=== PATIENT | male | born 1970 | race Caucasian/White ===

== ENCOUNTER 2017-02-24 09:37 | Emergency (ER) | payer OTHER ==
[~2017-02-24] VITALS: Ht 188 cm; Wt 107.4 kg
[~2017-02-24 09:37] MED LIST: ALBU8.5H2 INHALATION; LOPE2CAP PO; LORA2TAB PO; ONDA4TAB12 PO
[2017-02-24 09:40] VITALS: BP 139/91; PULSE 146; RESP 16; O2SAT 95
--- NOTE | 2017-02-24 09:58 | ED.REPORT ---
HPI-General Illness Date of Service Feb 24, 2017 ED Provider: Kenya Obando MD 46 y/o male with a hx of alcohol abuse presents to the ED for medical clearance for crisis respite. He has been binge drinking for a couple of days after being sober for about 4 months. Pt reports he last drank earlier this morning and is currently feeling like he needs another drink. The pt complains of associated weakness, dizziness, diarrhea, nausea, vomiting, and decreased appetite. He also mentions a cough he has had for the last 3 months. He denies fever, myalgia , abdominal pain, chest pain, or shortness of breath. Pt also denies depression and suicidal ideation. Nursing Notes Stated Complaint: DETOX Chief Complaint: Substance Abuse Nursing Notes Reviewed: Yes Allergies: Coded Allergies: penciclovir (Verified Allergy, Intermediate, Hives, 02/17/15) Penicillins (Verified Allergy, Unknown, hives, 03/17/15) Scheduled Albuterol HFA (Proair HFA) 8.5 Gm Hfa.aer.ad 2 PUFFS INHALATION Q4H Azithromycin (Zithromax) 250 Mg Tablet 250 MG PO DAILY Loperamide (Loperamide) 2 Mg Capsule 2 MG PO Q4H 2 tab first stool, 1 after subsequent up to 8 in 24 hours Lorazepam (Lorazepam) 2 Mg Tablet 2 MG PO DIRECTED 4 day taper per protocol 06/02/01/29 Ondansetron ODT (Ondansetron ODT) 4 Mg Tab.rapdis 4 MG PO Q12H Scheduled PRN Ondansetron ODT (Ondansetron ODT) 8 Mg Tab.rapdis 8 MG PO Q8H PRN PRN For Nausea /Vomiting General Time Seen by MD: 09:56 Chief Complaint Other (Medical clearance for crisis respite) Hx Obtained From: Patient Arrived By: Walk-in Sudden in Onset?: Yes Onset Occurred: 2 days ago Symptom Duration: Since onset Severity: Current: No pain currently Severity: Maximum: No pain Recent Healthcare: No recent doctor visit Similar Sx Previous: No Past Medical History Past Medical History Alcohol dependence Alcohol detox requests Alcohol withdrawal seizures Prostate cancer, in remission on quarterly checks Past Surgical History none reported Smoking History Current Every Day Smoker Social History Alcohol Use: >5 per day Drug Use: Denies drug use Other Social History: Frequent ED visitor Ambulatory Status Independent Review of Systems Decreased appetite Full Review of Systems Constitutional: Reports: Weakness - generalized, Denies: Fever Respiratory: Reports: Non-productive cough, Denies: Shortness of breath Cardiovascular: Denies: Chest pain GI: Reports: Diarrhea, Nausea, Vomiting, Denies: Abdominal pain Musculoskeletal: Denies: Myalgia Neurologic: Reports: Dizziness Psychiatric: Denies: Depression, Suicidal ideation Complete sys rev & neg: except as marked. Physical Exam Vital Signs Vital Signs Date Time Temp Pulse Resp B/P Pulse Ox O2 Delivery O2 Flow Rate FiO2 02/24/17 12:03 107 20 153/93 99 Room Air 02/24/17 09:40 37.1 146 16 139/91 95 Initial VS: Reviewed, Vital signs abnormal Head / Eyes: Atraumatic, Normocephalic, PERRL ENT: Mucous membranes moist, Conjunctiva normal, No scleral icterus Neck: Supple, Non-tender, Full range of motion Abdomen / GI: Soft, Non-tender, No guarding, No rebound, No distention Extremities: Vascular intact, Neuro intact, No swelling, No tenderness Neurologic: Alert, Oriented, Nonfocal Psychiatric: Mood/affect normal, Behavior normal, Normal thought content Respiratory / Chest: Atraumatic, No rales, No wheezing, No retractions Scattered Rhonchi Cardiovascular: Regular rhythm, Heart sounds NL, No murmurs Heart Rate / Rhythm: Positive: Tachycardia Interpretation & Diagnostics Lab Results Interpretation Result Diagram: 02/24/17 1018 02/24/17 1018 Test 02/24/17 10:18 02/24/17 10:34 White Blood Count 9.4th/mm3 (3.8-10.1) Red Blood Count 5.12mil/mm3 (4.40-5.80) Hemoglobin 15.4g/dL (13.8-17.2) Hematocrit 45.0% (41.0-50.0) Mean Corpuscular Volume 87.9fL (81-100) Mean Corpuscular Hemoglobin 30.1pg (27.0-35.0) Mean Corpuscular Hemoglobin Concent 34.2% (32.0-37.0) Red Cell Distribution Width 12.9% (12.3-15.4) Platelet Count 218bil/L (150-400) Neutrophils (%) (Auto) 56.7% (40-74) Lymphocytes (%) (Auto) 34.2% (14-46) Monocytes (%) (Auto) 8.2% (4-12) Eosinophils (%) (Auto) 0.2% (0-5) Basophils (%) (Auto) 0.4% (0-3) Hold Blue Top Tube Received (Received) Sodium Level 136mEq/L (134-144) Potassium Level 3.8mEq/L (3.5-5.2) Chloride Level 95mEq/L (97-108) Carbon Dioxide Level 18mmol/L (18-29) Blood Urea Nitrogen 12mg/dL (6-24) Creatinine 1.05mg/dL (0.76-1.27) Estimat Glomerular Filtration Rate 80mL/min (>59) Glucose Level 156mg/dL (60-99) Calcium Level 9.4mg/dL (8.5-10.1) Total Bilirubin 0.2mg/dL (0.0-1.2) Aspartate Amino Transf (AST/SGOT) 39U/L (0-50) Alanine Aminotransferase (ALT/SGPT) 21U/L (0-44) Alkaline Phosphatase 78U/L (25-150) Total Protein 7.6g/dL (6.4-8.4) Albumin 4.6g/dL (3.4-5.0) Hold Robles Top Tube Received (Received) X-Ray Chest Interpretation Chest Xray Interpretation: IMPRESSION: Mild bibasilar atelectasis versus pneumonia. Dictated by: Lubna Tang M.D. on 02/24/2017 at 12:07 Approved by: Lubna Tang M.D. on 02/24/2017 at 12:07 View: Portable, AP & lat Interpretation / Wet Read by: Interpret - Radiologist Re-Eval/Medical Decision Med Decision/Clinical Course The patient presents for medical clearance for detox. He is found to be significantly tachycardiac and was treated with IV hydration which improved his tachycardia. He also had 3 months of cough and has a questionable pneumonia on chest x-ray. Given the duration of his cough is not a course of antibiotics is warranted. The patient was medically cleared and sent to crisis respite with an Ativan taper, ondansetron, and azithromycin. Time of Eval: 12:38 Re-Evaluation/Progress Note: Rechecked pt. Discussed lab and imaging results and diagnosis. Informed the pt of the plan to discharge. Pt understands and agrees with plan. F/U instructions and RTER warning given. All questions addressed. Counseled Regarding: Diagnosis, Lab results, Need for follow-up, When/why to return to ED Discharge & Departure Primary Impression: Alcohol dependence with withdrawal Complication of substance-induced condition: uncomplicated Qualified Code: F10.230 - Alcohol dependence with withdrawal, uncomplicated Additional Impression: Pneumonia Pneumonia type: due to unspecified organism Laterality: unspecified laterality Lung location: unspecified part of lung Qualified Code: J18.9 - Pneumonia, unspecified organism Disposition: Home Discharge Condition All VS Reviewed: Yes Condition: Stable Patient Instructions: Alcohol Intoxication (GEN) Additional Instructions: Please go straight to crisis respite. Take your next dose of antibiotics tomorrow. It should help with your cough. Follow up with your Primary Care Provider for further evaluation as needed. Return to the Emergency Department in case of difficulty breathing or any new or worsening symptoms. Referrals: [facility] Scribe Attestation Portions of this note were transcribed by Luis A Wiseman. I, , personally performed the history, physical exam and medical decision-making;I reviewed and confirmed the accuracy of the information in the transcribed note. Signed by Sonu Le. 02/24/17 13:15. copies to: [facility] Kenya Obando MD Feb 24, 2017 09:58 Luis A Pandey Feb 24, 2017 10:07 Kimberli Wiseman Feb 24, 2017 13:14
[2017-02-24] MEDS ORDERED: 0.9% Sodium Chloride 1,000 ML IV ONE (10:00)
[2017-02-24 10:21] LABS: BASOPHILS % (AUTO) 0.4 % (0-3); EOSINOPHILS % (AUTO) 0.2 % (0-5); MONOCYTES % (AUTO) 8.2 % (4-12); Mean Corpuscular Hemoglobin 30.1 pg (27.0-35.0); Mean Corpuscular Volume 87.9 fL (81-100); NEUTROPHILS % (AUTO) 56.7 % (40-74); Platelet Count 218 bil/L (150-400)
[2017-02-24] MEDS ORDERED: Ondansetron 2 mg/mL 2 mL Inj ONE ×2 (10:24→12:47)
[2017-02-24 12:03] VITALS: BP 153/93; PULSE 107; RESP 20; O2SAT 99
--- NOTE | 2017-02-24 12:09 | DRSVH ---
PROCEDURE: X-RAY CHEST, TWO VIEWS ([id number]) INDICATIONS: cough TECHNIQUE: 2 views of the chest were acquired. COMPARISON: [facility], , CHEST 2VW, 12/12/2009, 22:11. FINDINGS: Surgical changes and devices: None. Lungs and pleura: No pleural effusions or pneumothorax. Mild patchy bibasilar airspace opacity. Mediastinum: Mediastinal contours are normal. Heart size is normal. Bones and chest wall: No suspicious bony abnormalities. Soft tissues appear unremarkable. IMPRESSION: Mild bibasilar atelectasis versus pneumonia. Dictated by: Lubna Tang M.D. on 02/24/2017 at 12:07 Approved by: Lubna Tang M.D. on 02/24/2017 at 12:07
[2017-02-24] MEDS ORDERED: ONDA8TAB10 PO (12:49)
[2017-02-24] MEDS ORDERED: ZIT250 PO (12:49)
[2017-02-24] MEDS ORDERED: LORazepam 2 mg Tablet PO ONE (13:05)
== END 2017-02-24 13:20 | disposition home or self-care (01) ==
LOC: SED 09:37
DX: F10.230 Alcohol dependence with withdrawal, uncomplicated (principal); J18.9 Pneumonia, unspecified organism; F17.200 Nicotine dependence, unspecified, uncomplicated; Z88.0 Allergy status to penicillin; Z88.8 Allergy status to other drugs, medicaments and biological substances
CPT/HCPCS: 36415; 71020; 80053; 82075; 85025; 96361; 96374; 99285; J2405; J7030

== ENCOUNTER 2017-04-07 00:15 | Emergency (ER) | payer OTHER ==
[~2017-04-07] VITALS: Ht 185.4 cm; Wt 104.6 kg
[~2017-04-07 00:15] MED LIST changes: +ONDA8TAB10 PO; +ZIT250 PO
[2017-04-07 00:23] VITALS: BP 135/91; PULSE 130; RESP 16; O2SAT 96
--- NOTE | 2017-04-07 00:34 | ED.REPORT ---
HPI-General Illness Date of Service Apr 07, 2017 ED Provider: Semaj Villagran DO A 46 year old male with a history of alcohol dependence and alcohol withdrawal with seizures presents to the ED requesting medical clearance for Crisis. The pt has a bed being held at [facility] until 09:00 in the morning. The pt has been on a hercules for nine days, drinking seven to eight drinks per day. His last drink was four hours ago. The pt is tremulous and has been vomiting today. Nursing Notes Stated Complaint: ALCOHOL DETOX Chief Complaint: Substance Abuse Nursing Notes Reviewed: Yes Allergies: Coded Allergies: penciclovir (Verified Allergy, Intermediate, Hives, 04/07/17) Penicillins (Verified Allergy, Unknown, hives, 04/07/17) Scheduled Albuterol HFA (Proair HFA) 8.5 Gm Hfa.aer.ad 2 PUFFS INHALATION Q4H Azithromycin (Zithromax) 250 Mg Tablet 250 MG PO DAILY Loperamide (Loperamide) 2 Mg Capsule 2 MG PO Q4H 2 tab first stool, 1 after subsequent up to 8 in 24 hours Lorazepam (Lorazepam) 2 Mg Tablet 2 MG PO DIRECTED 4 day taper per protocol 06/02/4/2 Ondansetron ODT (Ondansetron ODT) 4 Mg Tab.rapdis 4 MG PO Q12H Scheduled PRN Ondansetron ODT (Ondansetron ODT) 8 Mg Tab.rapdis 8 MG PO Q8H PRN PRN For Nausea /Vomiting General Time Seen by MD: 00:34 Chief Complaint Medical clearance Hx Obtained From: Patient Arrived By: Walk-in Sudden in Onset?: No Recent Healthcare: Recent doctor visit Similar Sx Previous: Yes Past Medical History Past Medical History Alcohol dependence Alcohol detox requests Alcohol withdrawal seizures Prostate cancer, in remission on quarterly checks Past Surgical History none reported Smoking History Current Every Day Smoker Social History Alcohol Use: >5 per day Drug Use: Denies drug use Other Social History: Frequent ED visitor Ambulatory Status Independent Review of Systems tremulous Full Review of Systems Respiratory: Denies: Non-productive cough, Shortness of breath Cardiovascular: Reports: Chest pain GI: Reports: Nausea, Vomiting Musculoskeletal: Denies: Back pain, Neck pain Skin: Denies Rash Complete sys rev & neg: except as marked. Physical Exam Vital Signs Vital Signs Date Time Temp Pulse Resp B/P Pulse Ox O2 Delivery O2 Flow Rate FiO2 04/07/17 00:23 36.6 130 16 135/91 96 Room Air Initial VS: Reviewed General/Constitutional: Awake, Alert tremulous Head / Eyes: Atraumatic, Normocephalic, PERRL, EOMI ENT: Atraumatic, Airway patent, Mucous membranes moist Neck: Atraumatic, Supple, Full range of motion Respiratory / Chest: Atraumatic, Breath sounds NL, Breath sounds = bilat, No respiratory distress Cardiovascular: Regular rhythm, Heart sounds NL Heart Rate / Rhythm: Positive: Tachycardia Abdomen: Atraumatic, Soft, Non-tender Back: Atraumatic, Full range of motion Upper Extremities Upper Extremity / MS: Atraumatic, Full range of motion Lower Extremity / Pelvis / MS: Atraumatic, Full range of motion Skin: Atraumatic, Color NL, No rash, Warm, Dry Neurologic: Oriented X3, Speech NL, No motor deficits, No sensory deficits Psychiatric: Affect NL, Mood NL tactile hallucinations Interpretation & Diagnostics Lab Results Interpretation Result Diagram: 04/07/17 0115 Test 04/07/17 01:15 White Blood Count 7.6th/mm3 (3.8-10.1) Red Blood Count 4.90mil/mm3 (4.40-5.80) Hemoglobin 15.1g/dL (13.8-17.2) Hematocrit 44.6% (41.0-50.0) Mean Corpuscular Volume 91.0fL (81-100) Mean Corpuscular Hemoglobin 30.8pg (27.0-35.0) Mean Corpuscular Hemoglobin Concent 33.9% (32.0-37.0) Red Cell Distribution Width 13.8% (12.3-15.4) Platelet Count 195bil/L (150-400) Neutrophils (%) (Auto) 37.8% (40-74) Lymphocytes (%) (Auto) 49.0% (14-46) Monocytes (%) (Auto) 11.0% (4-12) Eosinophils (%) (Auto) 1.3% (0-5) Basophils (%) (Auto) 0.5% (0-3) Hold Robles Top Tube Received (Received) Pulse Oximetry Interpretation Pulse Oximetry Interpretation: 96% on room air Pulse Oximetry: Pulse Ox normal ECG Interpretation ECG Interpretation: sinus tachycardia with a rate of 110 Time: 00:52 Interpreted by: ED physician Re-Eval/Medical Decision Source of Hx: Old records Time of Eval: 01:25 Patient Status: Condition improved Re-Evaluation/Progress Note: Pt rechecked, who is resting comfortably. His heart rate has improved and he is no longer vomiting. Time of Eval: 02:10 Patient Status: Condition improved Re-Evaluation/Progress Note: Pt rechecked, who is feeling much better. He is no longer tremulous or ancious. Heart rate is 78 and respiratory rate is 16. Abdomen is soft and nontender. The pt feels prepared to be discharged to sobering services. The diagnosis and plan for discharge is discussed. The pt understands and agrees with the plan. All questions are addressed at this time. Counseled Regarding: Diagnosis, Lab results, Need for follow-up, When/why to return to ED Discharge & Departure Primary Impression: Alcohol dependence with withdrawal Complication of substance-induced condition: with perceptual disturbance Qualified Code: F10.232 - Alcohol dependence with withdrawal with perceptual disturbance Disposition: Home Discharge Condition All VS Reviewed: Yes Condition: Stable Patient Instructions: Alcohol Withdrawal (DC) Additional Instructions: I commend you for choosing sobriety. Proceed to sobering services. Complete the lorazepam taper. Never combine alcohol with the lorazepam. Return to the emergency department for any problems or any worrisome symptoms. Set up a follow-up with your primary care physician after detox. Do not drive or operate machinery while under the influence of lorazepam. Do not drive tonight. Referrals: [facility] Scribe Attestation Portions of this note were transcribed by Jessica Fernandes. I, Dr. Villagran personally performed the history, physical exam and medical decision-making; I reviewed and confirmed the accuracy of the information in the transcribed note. Signed by: Sonu Deutsch, 04/07/17 and 0216. copies to: [facility] ; [facility] Semaj Villagran DO Apr 07, 2017 00:34 JESSICA FERNANDES Apr 07, 2017 00:46 JESSICA FERNANDES Apr 07, 2017 00:46
[2017-04-07] MEDS ORDERED: _LORazepam 2 MG Tablet PO SCH (00:35)
[2017-04-07] MEDS ORDERED: 0.9% Sodium Chloride 1,000 ML IV SCH (00:40)
[2017-04-07] MEDS ORDERED: Thiamine 100 mg/mL 2 mL Inj IM ONE (00:40)
[2017-04-07] MEDS ORDERED: FOLIC ACID 5 MG/ML IM ONE (00:40)
[2017-04-07 01:39] LABS: BASOPHILS % (AUTO) 0.5 % (0-3); EOSINOPHILS % (AUTO) 1.3 % (0-5); Mean Corpuscular Hemoglobin 30.8 pg (27.0-35.0); NEUTROPHILS % (AUTO) 37.8 % (40-74); Platelet Count 195 bil/L (150-400)
[2017-04-07 02:42] VITALS: BP 118/73; PULSE 89; RESP 20; O2SAT 93
== END 2017-04-07 02:35 | disposition home or self-care (01) ==
LOC: SED 00:15
DX: F10.232 Alcohol dependence with withdrawal with perceptual disturbance (principal); F17.200 Nicotine dependence, unspecified, uncomplicated; Z88.0 Allergy status to penicillin; Z88.8 Allergy status to other drugs, medicaments and biological substances
CPT/HCPCS: 36415; 80053; 85025; 93005; 96361; 96372; 96374; 99285; G0480; J3360; J7030

== ENCOUNTER 2017-05-18 20:14 | Emergency (ER) | payer OTHER ==
[~2017-05-18] VITALS: Ht 185.4 cm; Wt 103.3 kg
[2017-05-18 20:24] VITALS: BP 129/71; PULSE 116; RESP 22; O2SAT 96
--- NOTE | 2017-05-18 21:43 | ED.REPORT ---
HPI-Overdose/Alcohol Toxicity Date of Service May 18, 2017 ED Provider: Steven Oviedo MD Pt is a 46 year old male with a history of seizure-complicated alcohol withdrawals, alcohol detox, and alcohol dependence who presents to the ED wanting medical [facility] for [facility]. He reports that his last drink was at 18:00 today. The pt recently went to crisis on 04/07/17, and he reports that he stayed clean for 30 days. He denies any other health issues. Pt reports that he has a recent history of pneumonia, but he denies feeling similar symptoms. Nursing Notes Stated Complaint: ALCOHOL DETOX Chief Complaint: Substance Abuse Nursing Notes Reviewed: Yes Allergies: Coded Allergies: penciclovir (Verified Allergy, Intermediate, Hives, 05/18/17) Penicillins (Verified Allergy, Unknown, hives, 05/18/17) Scheduled Albuterol HFA (Proair HFA) 8.5 Gm Hfa.aer.ad 2 PUFFS INHALATION Q4H Azithromycin (Zithromax) 250 Mg Tablet 250 MG PO DAILY Loperamide (Loperamide) 2 Mg Capsule 2 MG PO Q4H 2 tab first stool, 1 after subsequent up to 8 in 24 hours Lorazepam (Lorazepam) 2 Mg Tablet 2 MG PO DIRECTED 4 day taper per protocol 06/02// Ondansetron ODT (Ondansetron ODT) 4 Mg Tab.rapdis 4 MG PO Q12H Scheduled PRN Ondansetron ODT (Ondansetron ODT) 8 Mg Tab.rapdis 8 MG PO Q8H PRN PRN For Nausea /Vomiting General Time Seen by Provider: 09:24 Chief Complaint Other (Detox) Hx Obtained From: Patient Arrived By: Walk-in Onset Occurred: Just prior to arrival Symptom Duration: Since onset Severity: Current: No pain currently Severity: Maximum: No pain Recent Healthcare: Recent doctor visit Similar Sx Previous: No Past Medical History Past Medical History Alcohol dependence Alcohol detox requests Alcohol withdrawal seizures Prostate cancer, in remission on quarterly checks Pneumonia Past Surgical History none reported Smoking History Current Every Day Smoker Social History Alcohol Use: >5 per day Drug Use: Denies drug use Other Social History: Frequent ED visitor Ambulatory Status Independent Review of Systems + Asymptomatic Complete sys rev & neg: except as marked. Physical Exam Initial Vital Signs Vital Signs (First) Date Time Temp Pulse Resp B/P Pulse Ox O2 Delivery O2 Flow Rate FiO2 05/18/17 20:24 37.2 116 22 129/71 96 Room Air Initial VS: Reviewed, Vital signs abnormal Head / Eyes: Atraumatic, Normocephalic Neck: Supple, Full range of motion Extremities: Vascular intact, Neuro intact Skin: Warm, Dry, No cyanosis General/Constitutional: Awake, Alert, Cooperative Smells of alcohol Respiratory / Chest: Atraumatic, Breath sounds NL, Breath sounds = bilat Cardiovascular: Heart rate NL, Regular rhythm, Heart sounds NL Abdomen: Atraumatic, Soft, Non-tender Liver was not palpable. Neurologic: Oriented X3, Speech NL, No motor deficits, No sensory deficits Psychiatric: Affect NL Interpretation & Diagnostics Lab Results Interpretation Result Diagram: 05/18/17219905/18/172199 Test 05/18/17 22:00 White Blood Count 5.1th/mm3 (3.8-10.1) Red Blood Count 4.68mil/mm3 (4.40-5.80) Hemoglobin 14.7g/dL (13.8-17.2) Hematocrit 42.2% (41.0-50.0) Mean Corpuscular Volume 90.2fL (81-100) Mean Corpuscular Hemoglobin 31.4pg (27.0-35.0) Mean Corpuscular Hemoglobin Concent 34.8% (32.0-37.0) Red Cell Distribution Width 13.3% (12.3-15.4) Platelet Count 154bil/L (150-400) Neutrophils (%) (Auto) 31.4% (40-74) Lymphocytes (%) (Auto) 49.8% (14-46) Monocytes (%) (Auto) 17.0% (4-12) Eosinophils (%) (Auto) 1.0% (0-5) Basophils (%) (Auto) 0.6% (0-3) Sodium Level 139mEq/L (134-144) Potassium Level 4.3mEq/L (3.5-5.2) Chloride Level 98mEq/L (97-108) Carbon Dioxide Level 23mmol/L (18-29) Blood Urea Nitrogen 6mg/dL (6-24) Creatinine 0.95mg/dL (0.76-1.27) Estimat Glomerular Filtration Rate 90mL/min (>59) Glucose Level 91mg/dL (60-99) Calcium Level 9.4mg/dL (8.5-10.1) Magnesium Level 2.1mg/dL (1.6-2.6) Total Bilirubin 0.2mg/dL (0.0-1.2) Aspartate Amino Transf (AST/SGOT) 71U/L (0-50) Alanine Aminotransferase (ALT/SGPT) 63U/L (0-44) Alkaline Phosphatase 97U/L (25-150) Total Protein 7.4g/dL (6.4-8.4) Albumin 4.1g/dL (3.4-5.0) Thyroid Stimulating Hormone (TSH) 1.640uIU/mL (0.450-4.500) Hold Robles Top Tube Received (Received) Lab Results Interpretation: Mild transaminitis secondary to alcohol Re-Eval/Medical Decision Med Decision/Clinical Course 46-year-old male who presents desiring detox. He [facility] bed [facility], but needs medical clearance and a lorazepam taper. He is medically clear. He will be transferred there by taxi. He was given lorazepam taper prepack. Source of Hx: Old records Re-Evaluation/Progress #1: Time of Eval: 23:01 Re-Evaluation/Progress Note: Pt rechecked. Pt is sleeping soundly. 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 Re-Evaluation/Progress #2: Time of Eval: 23:10 Re-Evaluation/Progress Note: Pt rechecked. Informed pt of plan for discharge. Pt understands and agrees with plan for discharge. F/U instructions and RTER warnings given. All questions addressed. Consultation : Call Returned at: 23:08 Studio Manager: Agrees with eval, Agrees with plan Note: Consult with [facility]. Discussed pt's case. They will send a taxi for him at 23:30. Counseled Regarding: Diagnosis, Lab results, Need for follow-up, When/why to return to ED Discharge & Departure Impression: Primary Impression: Alcohol dependence with withdrawal Complication of substance-induced condition: uncomplicated Qualified Code: F10.230 - Alcohol dependence with withdrawal, uncomplicated )( Condition at Discharge: Clear for alcohol rehab Disposition: Home Discharge Condition All VS Reviewed: Yes Condition: Stable Patient Instructions: Alcohol Withdrawal (ED) Additional Instructions: You are medically stable for alcohol withdrawal treatment in an outpatient setting. Go directly to [facility]. I have included an Ativan ( lorazepam) taper to help prevent any medical complications of withdrawal. Referrals: [facility] Scribe Attestation Portions of this note were transcribed by Leena Quezada. I, Dr. Oviedo personally performed the history, physical exam and medical decision-making; I reviewed and confirmed the accuracy of the information in the transcribed note. Signed by: Sonu Jones, 05/18/17 and 23:50. copies to: [facility] Steven Oviedo MD May 18, 2017 21:43 Leena Rey May 18, 2017 22:27
[2017-05-18] MEDS ORDERED: _LORazepam 2 MG Tablet PO SCH (21:50)
[2017-05-18 22:10] LABS: BASOPHILS % (AUTO) 0.6 % (0-3); Mean Corpuscular Hemoglobin 31.4 pg (27.0-35.0); Mean Corpuscular Volume 90.2 fL (81-100); NEUTROPHILS % (AUTO) 31.4 % (40-74); Platelet Count 154 bil/L (150-400)
[2017-05-18 22:46] LABS: Magnesium 2.1 mg/dL (1.6-2.6)
[2017-05-19 00:05] VITALS: BP 135/84; PULSE 117; RESP 16; O2SAT 97
== END 2017-05-19 00:05 | disposition home or self-care (01) ==
LOC: SED 20:14
DX: F10.230 Alcohol dependence with withdrawal, uncomplicated (principal); Z87.01 Personal history of pneumonia (recurrent); Z85.46 Personal history of malignant neoplasm of prostate; Z88.0 Allergy status to penicillin; Z88.8 Allergy status to other drugs, medicaments and biological substances

== ENCOUNTER 2017-06-19 21:11 | Emergency (ER) | payer OTHER ==
[~2017-06-19] VITALS: Ht 188 cm; Wt 100.5 kg
[2017-06-19 21:15] VITALS: BP 137/93; PULSE 118; RESP 18; O2SAT 96
--- NOTE | 2017-06-19 21:42 | ED.REPORT ---
HPI-General Illness Date of Service Jun 19, 2017 ED Provider: Dr. Villagran Pt is a 46 year old male who presents to the ED desiring detox. He reports that [facility], he is requesting clearance. He reports that he is nauseated and vomiting for the past day, and requests nausea medication and fluids. Pt states that he has no complication in the past with detox. He has no other complaints . Nursing Notes Stated Complaint: DETOX Chief Complaint: Substance Abuse Nursing Notes Reviewed: Yes Allergies: Coded Allergies: penciclovir (Verified Allergy, Intermediate, Hives, 05/18/17) Penicillins (Verified Allergy, Unknown, hives, 05/18/17) Scheduled Albuterol HFA (Proair HFA) 8.5 Gm Hfa.aer.ad 2 PUFFS INHALATION Q4H Azithromycin (Zithromax) 250 Mg Tablet 250 MG PO DAILY Loperamide (Loperamide) 2 Mg Capsule 2 MG PO Q4H 2 tab first stool, 1 after subsequent up to 8 in 24 hours Lorazepam (Lorazepam) 2 Mg Tablet 2 MG PO DIRECTED 4 day taper per protocol 4/4/2 Ondansetron ODT (Ondansetron ODT) 4 Mg Tab.rapdis 4 MG PO Q12H Scheduled PRN Ondansetron ODT (Ondansetron ODT) 8 Mg Tab.rapdis 8 MG PO Q8H PRN PRN For Nausea /Vomiting General Time Seen by MD: 21:42 Chief Complaint Other (Detox) Hx Obtained From: Patient Arrived By: Walk-in Sudden in Onset?: No Symptom Duration: Since onset Severity: Current: No pain currently Severity: Maximum: No pain Similar Sx Previous: Yes Past Medical History Past Medical History Alcohol dependence Alcohol detox requests Alcohol withdrawal seizures Prostate cancer, in remission on quarterly checks Pneumonia Past Surgical History none reported Smoking History Current Every Day Smoker Social History Alcohol Use: >5 per day Drug Use: Denies drug use Other Social History: Frequent ED visitor Ambulatory Status Independent Review of Systems Full Review of Systems Constitutional: Denies: Chills, Fever, Malaise, Weakness - generalized Respiratory: Denies: Non-productive cough, Shortness of breath, Wheezing Cardiovascular: Denies: Chest pain, Syncope GI: Reports: Nausea, Vomiting, Denies: Abdominal pain, Constipation, Diarrhea Male: Denies Dysuria, Denies Flank pain Musculoskeletal: Denies: Extremity pain Skin: Denies Diaphoresis Neurologic: Denies: Change LOC, Dizziness, Headache, Syncope, Weakness Complete sys rev & neg: except as marked. Physical Exam Vital Signs Vital Signs Date Time Temp Pulse Resp B/P Pulse Ox O2 Delivery O2 Flow Rate FiO2 06/20/17 00:17 89 16 142/83 94 Room Air 06/19/17 21:15 36.9 118 18 137/93 96 Room Air Initial VS: Reviewed Head / Eyes: Atraumatic, Normocephalic, PERRL ENT: Mucous membranes moist, Conjunctiva normal, No scleral icterus Neck: Supple, Non-tender, Full range of motion Respiratory: Breath sounds normal, Clear to auscultation, No respiratory distress Cardiovascular: Regular rate & rhythm, Heart sounds normal, Intact distal pulses Abdomen / GI: Soft, Non-tender, No guarding, No rebound, No distention Skin: Warm, Dry, No cyanosis Neurologic: Alert, Oriented, Nonfocal General/Constitutional: Awake, Alert Smells of alcohol Slightly slurred speach Interpretation & Diagnostics Lab Results Interpretation Result Diagram: 06/19/17221906/19/172219 Test 06/19/17 21:53 06/19/17 22:20 Hold Urine Received (Received) White Blood Count 6.1th/mm3 (3.8-10.1) Red Blood Count 4.76mil/mm3 (4.40-5.80) Hemoglobin 14.8g/dL (13.8-17.2) Hematocrit 42.9% (41.0-50.0) Mean Corpuscular Volume 90.1fL (81-100) Mean Corpuscular Hemoglobin 31.1pg (27.0-35.0) Mean Corpuscular Hemoglobin Concent 34.5% (32.0-37.0) Red Cell Distribution Width 12.4% (12.3-15.4) Platelet Count 164bil/L (150-400) Neutrophils (%) (Auto) 36.7% (40-74) Lymphocytes (%) (Auto) 48.9% (14-46) Monocytes (%) (Auto) 11.1% (4-12) Eosinophils (%) (Auto) 2.3% (0-5) Basophils (%) (Auto) 0.7% (0-3) Hold Purple Top Tube Received (Received) Hold Blue Top Tube Received (Received) Sodium Level 141mEq/L (134-144) Potassium Level 4.2mEq/L (3.5-5.2) Chloride Level 104mEq/L (97-108) Carbon Dioxide Level 21mmol/L (18-29) Blood Urea Nitrogen 7mg/dL (6-24) Creatinine 0.95mg/dL (0.76-1.27) Estimat Glomerular Filtration Rate 90mL/min (>59) Glucose Level 93mg/dL (60-99) Calcium Level 8.4mg/dL (8.5-10.1) Total Bilirubin 0.2mg/dL (0.0-1.2) Aspartate Amino Transf (AST/SGOT) 68U/L (0-50) Alanine Aminotransferase (ALT/SGPT) 46U/L (0-44) Alkaline Phosphatase 96U/L (25-150) Total Protein 7.3g/dL (6.4-8.4) Albumin 4.0g/dL (3.4-5.0) Hold [place] Top Tube Received (Received) Hold [place] Top Tube Received (Received) Re-Eval/Medical Decision Med Decision/Clinical Course This gentleman was hydrated and observed. His nausea was treated. He started to sober up clinically. He was deemed stable for sobering services. Laboratory work reviewed. I think he should do well with alcohol cessation. Ativan taper provided. No signs of delirium tremens Source of Hx: Old records Time of Eval: 23:09 Re-Evaluation/Progress Note: Pt is rechecked and informed of the plan to discharge him at this time. He understands and agrees, all questions are addressed. Counseled Regarding: Diagnosis, Lab results, When/why to return to ED Discharge & Departure Primary Impression: Alcohol abuse Disposition: Home Discharge Condition All VS Reviewed: Yes Condition: Stable Additional Instructions: Proceed directly to sobering services. Take the Ativan taper as prescribed, and the Zofran as need for nausea. Return to the emergency department with any concerns. Referrals: NOPCP (PCP) Scribe Attestation Portions of this note were transcribed by Chely Hudson. I, Dr. Villagran personally performed the history, physical exam and medical decision-making; I reviewed and confirmed the accuracy of the information in the transcribed note. Signed by: Sonu Carnes, 06/19/2017 [id number] Semaj Villagran DO Jun 19, 2017 21:42 NITHYA HUDSON Jun 19, 2017 21:54
[2017-06-19] MEDS ORDERED: 0.9% Sodium Chloride 1,000 ML IV SCH (21:55)
[2017-06-19] MEDS ORDERED: Ondansetron 2 mg/mL 2 mL Inj IVPUSH ONE (21:55)
[2017-06-19 22:33] LABS: BASOPHILS % (AUTO) 0.7 % (0-3); EOSINOPHILS % (AUTO) 2.3 % (0-5); MONOCYTES % (AUTO) 11.1 % (4-12); Mean Corpuscular Hemoglobin 31.1 pg (27.0-35.0); Mean Corpuscular Volume 90.1 fL (81-100); NEUTROPHILS % (AUTO) 36.7 % (40-74); Platelet Count 164 bil/L (150-400)
[2017-06-19] MEDS ORDERED: _Ondansetron ODT 4 mg Tablet PO PRN (23:05)
[2017-06-19] MEDS ORDERED: _LORazepam 2 MG Tablet PO SCH (23:05)
[2017-06-20 00:17] VITALS: BP 142/83; PULSE 89; RESP 16; O2SAT 94
== END 2017-06-20 01:09 | disposition home or self-care (01) ==
LOC: SED 21:11
DX: F10.10 Alcohol abuse, uncomplicated (principal); F17.200 Nicotine dependence, unspecified, uncomplicated; Z85.46 Personal history of malignant neoplasm of prostate; Z88.0 Allergy status to penicillin; Z88.8 Allergy status to other drugs, medicaments and biological substances
CPT/HCPCS: 36415; 80053; 82075; 85025; 96361; 96374; 99284; J2405; J7030